=== PATIENT | male | born 1960 | race Caucasian/White ===

== ENCOUNTER 2016-11-18 23:30 | Emergency (ER) | payer BC ==
[~2016-11-18] VITALS: Ht 175.3 cm; Wt 68.0 kg
[2016-11-19] MEDS ORDERED: LISINOPRIL20 MG PO (02:22)
[2016-11-19] MEDS ORDERED: SERTRALINE HCL50 MG PO (02:22)
[2016-11-19] MEDS ORDERED: NORCO 5-325 TA1 EACH PO (02:38)
== END 2016-11-19 03:11 | disposition home or self-care (01) ==
LOC: ED 23:30
PROC: 2W3CX1Z Immobilization of Right Lower Arm using Splint (ICD-10-PCS; principal; 2016-11-18)
DX: S52.501A Unspecified fracture of the lower end of right radius, initial encounter for closed fracture (principal); F32.9 Major depressive disorder, single episode, unspecified; I10 Essential (primary) hypertension; W10.9XXA Fall (on) (from) unspecified stairs and steps, initial encounter; Z79.899 Other long term (current) drug therapy
CPT/HCPCS: 29125; 73110; 99283